=== PATIENT | female | born 1955 | race Caucasian/White ===

== ENCOUNTER 2022-10-23 06:33 | Day surgery (SDC) | payer MEDICARE, SELFPAY ==
[2022-10-18 11:04] VITALS: BMI 27.4
--- NOTE | 2022-10-20 09:58 | MHC.SHP ---
Pre-Procedural Eval Section A Date of Service: 10/20/22 The patient is an INPATIENT: No Changes since office visit: No Cold of Flu in the past 2 weeks, No New Medical Problems, No Changes in Medication and No Patient answered all questions The History & Physical has been completed within 30 days and I have reviewed it.: Yes Section B Chief Complaint: Age-related nuclear cataract, left eye Allergies: Allergies Allergy/AdvReac Type Severity Reaction Status Date / Time bee pollen [bee stings] Allergy Severe Anaphylaxis Verified 10/18/22 11:02 Plan Diagnosis/Plan: Unchanged I have reviewed the history and physical and performed a pertinent physical examination on my patient. No changes have occurred unless specified. Time Spent With Patient Time: Total time managing care of this patient today ____ minutes.
[2022-10-23 06:52] VITALS: BP 151/86; PULSE 69; RESP 18; TEMP 36.7; O2SAT 96
[2022-10-23] MEDS: Lactated Ringers 500 ML 20 ML IVCONT (06:54)
[2022-10-23] MEDS: Tetracaine HCl/PF 0.5% Oph Sol 4 ML DROPS 1 DROP EYE-LEFT (06:54)
[2022-10-23] MEDS: Phenylephrine HCL 2.5% Oph SoL 2 ML BOTTLE 1 DROP EYE-LEFT ×3 (06:55→07:05)
[2022-10-23] MEDS: Cyclopentolate 1 % Ophth Sol 2 ML DRPBTL 1 DROP EYE-LEFT ×3 (06:55→07:05)
[2022-10-23] MEDS: Tropicamide 1 % Ophth Sol 3 ML BTL 1 DROP EYE-LEFT ×3 (06:55→07:05)
[2022-10-23] MEDS: Ketorolac Tromethamine 0.5% Op 5 ML DROPS 1 DROP EYE-LEFT ×2 (07:00→07:05)
--- NOTE | 2022-10-23 07:22 | P.CONAN_ITS ---
FORMERLY [facility] Past Medical History Medical History Cataract Elevated cholesterol Hypertension Family History Family history of problems with anesthesia: No Surgical History Surgical History Hx of colonoscopy History of Problems with Anesthesia: No Social History Social History (Updated 10/18/22 @ 11:09 by Fatoumata German RN) Are you a primary wound care technician to a significant other at home: No Do you presently have visiting nurse or other home services: No Patient Tobacco Use Status: Former Tobacco user Quit Date: 2009 Use of substances other than those prescribed or required for medical reasons: No Have you been hit, kicked, punched, or otherwise hurt by someone within the past year? If so, by whom?: No Are you DNR?: No Advance Directives: No Advance Directives Information Provided: Yes Advance Directives on File: No Recently lost weight without trying: No Nutrition Risks: No Nutritional Risk Meds Allergies Allergy/AdvReac Type Severity Reaction Status Date / Time bee pollen [bee stings] Allergy Severe Anaphylaxis Verified 10/18/22 11:02 Active Medications: Current Medications Lactated Ringer's (Lr) 500 mls @ 20 mls/hr IVCONT .Q24H STUART Last Admin: 10/23/22 06:54 Dose: 20 mls/hr Povidone Iodine (Povidone Iodine 5 % Ophth Soln 30 Ml Bottle) 1 appl EYE-LEFT PREOP PRN PRN Reason: Pre-Op Surgical Implant Prophy Home Medications Medication Instructions Recorded Confirmed Last Taken Type atorvastatin 20 mg tablet 1 tab PO DAILY 10/18/22 10/18/22 Unknown History epinephrine 0.3 mg/0.3 mL 0.3 ml IM ONCE PRN Allergic 10/18/22 10/18/22 Unknown History injection, auto-injector Reaction irbesartan 75 mg tablet 1 tab PO DAILY 10/18/22 10/18/22 Unknown History Exam Exam Date and Time: October 23, 2022721 Height,Weight and Vital Signs: Height 5 ft 3 in Weight 70.307 kg Last Vital Signs Temp 98.1 F 10/23/22 06:52 Pulse 69 10/23/22 06:52 Resp 18 10/23/22 06:52 BP 151/86 H 10/23/22 06:52 Pulse Ox 96 10/23/22 06:52 O2 Del Method 10/23/22 06:52 Airway Mallampati Class: II (Upper right permanent partial, implant upper left) TM Dist: >3cm Neck ROM: Full Heart: rrr Lungs: cta Assessment and Plan Assessment Anesthesia Assessment: Anesthesia Plan Discussed and Chart Reviewed Final Anesthetic Review Family History of Problems with Anesthesia: No History of Problems with Anesthesia: No NPO: Yes ASA Class: II Final Preanesthetic Review: No Changes in Pt Med Stat, Meds/Allgs Chart Reviewed and Consent Obtained/Reviewed Patient Risk: Intermediate Procedure Risk: Intermediate Anesthetic Plan Anesthetic Plan: MAC: Disposition: Standard PACU
--- NOTE | 2022-10-23 08:26 | HO.PNOPHT ---
Ophthalmology Procedure Procedure Date of Service: 10/23/22 Ophthalmology Viscoelastic: Healcrys Jonest Dual Pack Pro Ophthalmology Lenses: TECCALI [id number] (22) Procedure Notes: PREOPERATIVE DIAGNOSIS: Decreased visual acuity left eye secondary to cataract POSTOPERATIVE DIAGNOSIS: Same PROCEDURE: Left cataract extraction with intraocular lens insertion SURGEON: Roque Thomas M.D. ANESTHESIA: Topical/MAC ESTIMATED BLOOD LOSS: None COMPLICATIONS: None After obtaining informed consent, the patient was brought to the operation room suite and placed in the supine position. After adequate sedation per anesthesia, topical drops of Tetracaine were given to the left eye. The eye was then prepped and draped in the usual sterile fashion. The operating room microscope was then positioned over the operative eye and a lid speculum placed. A paracentesis was created. Viscoelastic was then instilled into the anterior chamber. A three plane incision was then created temporally, utilizing a 2.85 mm keratome. Capsulotomy forceps were then utilized to create a circular tear capsulotomy. Hydrodissection and hydrodelineation were carried out until adequate mobilization of the nucleus occurred. Phacoemulsification was then utilized to remove the dense central nucleus followed by removal of the cortical material utilizing the automated aspiration irrigation unit. Viscoat elastic was instilled into the posterior capsular bag followed by placement of a posterior chamber intraocular lens without difficulty. The residual Viscoat elastic was then removed utilizing the automated IA machine. The wound was check and found to be watertight. The patient tolerated the procedure well and the lid speculum was removed. Intracameral injection of Vigamox 0.1 mL followed by a subtenon injection of Kenalog-40 0.2 mL were administered. The patient will be seen in the a.m.
[2022-10-23 08:50] VITALS: BP 167/92; PULSE 65; RESP 16; TEMP 36.2; O2SAT 95
== END 2022-10-23 09:00 | disposition home or self-care (01) ==
PROVIDERS: PCP Nurse Practitioner Family; Visit Provider Ophthalmology
PROC: (CPT 66985; principal; 2022-10-23 08:20)
DX: H25.12 Age-related nuclear cataract, left eye (principal); H54.7 Unspecified visual loss; I10 Essential (primary) hypertension; E78.00 Pure hypercholesterolemia, unspecified; Z87.891 Personal history of nicotine dependence; Z79.899 Other long term (current) drug therapy
CPT/HCPCS: 66984; J2250; J3301; V2632

== ENCOUNTER 2022-11-13 07:30 | Day surgery (SDC) | payer MEDICARE, SELFPAY ==
[2022-10-18 11:20] VITALS: BMI 27.4
--- NOTE | 2022-11-08 09:26 | MHC.SHP ---
Pre-Procedural Eval Section A Date of Service: 11/08/22 The patient is an INPATIENT: No Changes since office visit: No Cold of Flu in the past 2 weeks, No New Medical Problems, No Changes in Medication and No Patient answered all questions The History & Physical has been completed within 30 days and I have reviewed it.: Yes Section B Chief Complaint: Age-related nuclear cataract, right eye Allergies: Allergies Allergy/AdvReac Type Severity Reaction Status Date / Time bee pollen [bee stings] Allergy Severe Anaphylaxis Verified 10/18/22 11:02 Plan Diagnosis/Plan: Unchanged I have reviewed the history and physical and performed a pertinent physical examination on my patient. No changes have occurred unless specified. Time Spent With Patient Time: Total time managing care of this patient today ____ minutes.
--- NOTE | 2022-11-13 07:47 | HO.ANESPROP2 ---
FORMERLY [facility] Past Medical History Medical History Elevated cholesterol Hypertension Family History Family history of problems with anesthesia: No Surgical History Surgical History Cataract extraction status of left eye Hx of colonoscopy History of Problems with Anesthesia: No Social History Social History Are you a primary home care chaplain to a significant other at home: No Do you presently have visiting nurse or other home services: No Patient Tobacco Use Status: Former Tobacco user Quit Date: 2009 Use of substances other than those prescribed or required for medical reasons: No Have you been hit, kicked, punched, or otherwise hurt by someone within the past year? If so, by whom?: No Are you DNR?: No Advance Directives: No Advance Directives Information Provided: Yes Advance Directives on File: No Recently lost weight without trying: No Nutrition Risks: No Nutritional Risk Poor oral hygiene: No Meds Allergies Allergy/AdvReac Type Severity Reaction Status Date / Time bee pollen [bee stings] Allergy Severe Anaphylaxis Verified 11/13/22 07:41 Active Medications: Current Medications Cyclopentolate HCl (Cyclopentolate 1 % Ophth Vanna 2 Ml Drpbtl) 1 drop EYE-RIGHT Q5M STUART Stop: 11/13/22 07:56 Ketorolac Tromethamine (Ketorolac Tromethamine 0.5% Op 5 Ml Drops) 1 drop EYE-RIGHT Q5M STUART Stop: 11/13/22 07:56 Phenylephrine HCl (Phenylephrine Hcl 2.5% Oph Vanna 2 Ml Bottle) 1 drop EYE-RIGHT Q5M STUART Stop: 11/13/22 07:56 Povidone Iodine (Povidone Iodine 5 % Ophth Soln 30 Ml Bottle) 1 appl EYE-RIGHT PREOP PRN PRN Reason: Pre-Op Surgical Implant Prophy Tropicamide (Tropicamide 1 % Ophth Vanna 3 Ml Btl) 1 drop EYE-RIGHT Q5M STUART Stop: 11/13/22 07:56 Home Medications Medication Instructions Recorded Confirmed Last Taken Type atorvastatin 20 mg tablet 1 tab PO DAILY 10/18/22 10/18/22 Unknown History epinephrine 0.3 mg/0.3 mL 0.3 ml IM ONCE PRN Allergic 10/18/22 10/18/22 Unknown History injection, auto-injector Reaction irbesartan 75 mg tablet 1 tab PO DAILY 10/18/22 11/13/22 11/12/22 History clonazepam 0.5 mg tablet 1 tab PO BEDTIME PRN anxiety 11/13/22 11/13/22 11/13/22 07:00 History Exam Exam Date and Time: November 13, 2022 0747 Height,Weight and Vital Signs: Height 5 ft 3 in Weight 70.307 kg Airway Mallampati Class: II TM Dist: >3cm Neck ROM: Full Loose/Missing/Broken Teeth: No Heart: RRR Lungs: CTA Assessment and Plan Assessment Anesthesia Assessment: Anesthesia Plan Discussed and Chart Reviewed Final Anesthetic Review Family History of Problems with Anesthesia: No History of Problems with Anesthesia: No NPO: Yes ASA Class: II Final Preanesthetic Review: Meds/Allgs Chart Reviewed, Consent Obtained/Reviewed and Anes Risks/Benef Reviewed Patient Risk: Low Procedure Risk: Low Anesthetic Plan Anesthetic Plan: MAC: Disposition: Standard PACU
[2022-11-13] MEDS: Tetracaine HCl/PF 0.5% Oph Sol 4 ML DROPS 1 DROP EYE-RIGHT (07:51)
[2022-11-13 07:52] VITALS: BP 165/89; PULSE 69; RESP 16; TEMP 36.3; O2SAT 96
[2022-11-13] MEDS: Cyclopentolate 1 % Ophth Sol 2 ML DRPBTL 1 DROP EYE-RIGHT ×3 (07:52→08:08)
[2022-11-13] MEDS: Tropicamide 1 % Ophth Sol 3 ML BTL 1 DROP EYE-RIGHT ×3 (07:54→08:10)
[2022-11-13] MEDS: Ketorolac Tromethamine 0.5% Op 5 ML DROPS 1 DROP EYE-RIGHT ×3 (07:56→08:12)
[2022-11-13] MEDS: Phenylephrine HCL 2.5% Oph SoL 2 ML BOTTLE 1 DROP EYE-RIGHT ×3 (07:58→08:14)
--- NOTE | 2022-11-13 09:05 | HO.PNOPHT ---
Ophthalmology Procedure Procedure Date of Service: 11/13/22 Ophthalmology Viscoelastic: Traci Jonest Dual Pack Pro Ophthalmology Lenses: TECCALI [id number] (22) Procedure Notes: PREOPERATIVE DIAGNOSIS: Decreased visual acuity right eye secondary to cataract POSTOPERATIVE DIAGNOSIS: Same PROCEDURE: Right cataract extraction with intraocular lens insertion SURGEON: Roque Thomas M.D. ANESTHESIA: Topical/MAC ESTIMATED BLOOD LOSS: None COMPLICATIONS: None After obtaining informed consent, the patient was brought to the operating room suite and placed in the supine position. After adequate sedation per anesthesia, topical drops of Tetracaine were given to the right eye. The eye was then prepped and draped in the usual sterile fashion. The operating room microscope was then positioned over the operative eye and a lid speculum placed. A paracentesis was created. Viscoelastic was then instilled into the anterior chamber. A three plane incision was then created temporally, utilizing a 2.85 mm keratome. Capsulotomy forceps were then utilized to create a circular tear capsulotomy. Hydrodissection and hydrodelineation were carried out until adequate mobilization of the nucleus occurred. Phacoemulsification was then utilized to remove the dense central nucleus followed by removal of the cortical material utilizing the automated aspiration irrigation unit. Viscoelastic was instilled into the posterior capsular bag followed by placement of a posterior chamber intraocular lens without difficulty. The residual Viscoelastic was then removed utilizing the automated IA machine. The wound was checked and found to be watertight. The patient tolerated the procedure well and the lid speculum was removed. Intracameral injection of Vigamox 0.1 mL followed by a subtenon injection of Kenalog-40 0.2 mL were administered. The patient will be seen in the a.m.
[2022-11-13 09:28] VITALS: BP 175/87; PULSE 65; RESP 18; TEMP 36.5; O2SAT 99
== END 2022-11-13 09:43 | disposition home or self-care (01) ==
PROVIDERS: PCP Nurse Practitioner Family; Visit Provider Ophthalmology
PROC: (CPT 66985; principal; 2022-11-13 09:30)
DX: H25.11 Age-related nuclear cataract, right eye (principal); H54.7 Unspecified visual loss; H40.003 Preglaucoma, unspecified, bilateral; I10 Essential (primary) hypertension; E78.00 Pure hypercholesterolemia, unspecified; Z79.899 Other long term (current) drug therapy; Z87.891 Personal history of nicotine dependence
CPT/HCPCS: 66984; J2250; J3301; V2632

== ENCOUNTER 2022-11-15 14:17 | Emergency (ER) | payer MEDICARE, SELFPAY ==
--- NOTE | ~2022-11-15 | CT_ITS ---
EXAMINATION: CT ABDOMEN AND PELVIS WITHOUT CONTRAST CLINICAL INFORMATION: Right flank pain. COMPARISON: Abdominal ultrasound dated 04/30/2013. TECHNIQUE: Multidetector volumetric imaging was performed from the superior aspect of the liver through the pubic symphysis. Sagittal and coronal reformatted images were obtained on the technologist's workstation. Lack of intravenous and oral contrast limits visceral evaluation. This CT examination was performed using dose optimization techniques as appropriate, variously including the following: *Automated exposure control *Adjustment of mA and/or kV according to patient size (this includes techniques or standardized protocols for targeted exams where dose is matched to indication/reason for exam; i.e. extremities or head) *Use of iterative reconstruction technique DLP: 534 mGy-cm FINDINGS: LUNG BASES: Minimal bibasilar linear atelectasis/scarring. LIVER, GALLBLADDER, AND BILIARY TREE: Unremarkable. PANCREAS: Unremarkable. SPLEEN: Unremarkable. ADRENAL GLANDS: Unremarkable. KIDNEYS AND URETERS: The kidneys are normal in size, shape, and attenuation. No hydronephrosis, hydroureter, or calculi seen. No perinephric stranding. BLADDER: Unremarkable. GASTROINTESTINAL TRACT: The stomach, small bowel and appendix are unremarkable. The colon is unremarkable. Mild to moderate stool seen within the rectum without surrounding abnormality. ABDOMINAL WALL: No significant hernia is appreciated. LYMPH NODES: No lymphadenopathy. VASCULAR: Moderate atherosclerosis without significant dilatation. PELVIC VISCERA: Small left ovarian dermoid with associated coarse calcification and neck component collectively measuring 3.0 x 1.6 x 1.6 cm (image 42, series 6; image 64, series 3). OSSEOUS STRUCTURES: Mild multilevel degenerative changes. No suspicious abnormality. CT/CT abdomen pelvis wo IV con IMPRESSION: 1. No acute intra-abdominal/pelvic abnormality to explain the patient's pain. No nephrolithiasis or hydroureteronephrosis. 2. Small left ovarian dermoid.
[2022-11-15 15:45] VITALS: BP 205/90; PULSE 70; RESP 19; TEMP 36.6; O2SAT 98; BMI 27.4
--- NOTE | 2022-11-15 15:46 | ED_ITS ---
HPI - Back Pain/Injury General Chief Complaint: Back Pain/Injury <Mary Mazariegos CNP - Last Filed: 11/15/22 15:52> Stated Complaint: severe back pain <Mary Mazariegos CNP - Last Filed: 11/15/22 15:52> Time Seen by Provider: 11/15/22 17:58 <Mary Mazariegos CNP - Last Filed: 11/15/22 15:52> History of Present Illness HPI Narrative: Patient complains of severe right-sided low back flank and gluteal pain which began gradually last night, and has remained severe with movement but not as bad when she rests in a comfortable position, pain is movement related There is no dysuria no frequency there is no incontinence no changes to bowel or bladder there is no numbness weakness or tingling, pain does radiate from the back towards the right groin area There is no fever no IV drug use, it is painful to walk but she is able to walk No chest pain no abdominal pain no nausea no vomiting no diarrhea <JUAN Fall - Last Filed: 11/15/22 19:02> Related Data Home Medications: Home Medications Medication Instructions Recorded Confirmed atorvastatin 20 mg tablet 1 tab PO DAILY 10/18/22 10/18/22 epinephrine 0.3 mg/0.3 mL 0.3 ml IM ONCE PRN Allergic 10/18/22 10/18/22 injection, auto-injector Reaction irbesartan 75 mg tablet 1 tab PO DAILY 10/18/22 11/13/22 clonazepam 0.5 mg tablet 1 tab PO BEDTIME PRN anxiety 11/13/22 11/13/22 Previous Rx's Medication Instructions Recorded acetaminophen 500 mg capsule 1,000 mg PO Q8H PRN pain #30 caps 11/15/22 cyclobenzaprine 5 mg tablet 5 mg PO TID PRN muscle spasm #14 11/15/22 tabs naproxen 500 mg tablet (Naprosyn) 500 mg PO BID PRN pain #14 tabs 11/15/22 oxycodone 5 mg tablet 5 mg PO Q6H PRN pain #20 tabs 11/15/22 <Mary Mazariegos CNP - Last Filed: 11/15/22 15:52> Allergies/Adverse Reactions: Allergies Allergy/AdvReac Type Severity Reaction Status Date / Time bee pollen [bee stings] Allergy Severe Anaphylaxis Verified 11/13/22 07:41 <Mary Mazariegos CNP - Last Filed: 11/15/22 15:52> [facility] Past Medical History Attestation statement: The following information was validated with the patient. <JUAN Fall - Last Filed: 11/15/22 19:02> [facility] Narrative: Patient does have history of high blood pressure and is compliant with her medication <JUAN Fall - Last Filed: 11/15/22 19:02> Medical History: Medical History Elevated cholesterol Hypertension <Mary Mazariegos CNP - Last Filed: 11/15/22 15:52> Surgical History: Surgical History Cataract extraction status of left eye Hx of colonoscopy <Mary Mazariegos CNP - Last Filed: 11/15/22 15:52> Social History Social History: Social History Are you a primary director of critical care to a significant other at home: No Do you presently have visiting nurse or other home services: No Patient Tobacco Use Status: Former Tobacco user Quit Date: 2009 Advance Directives: Yes Advance Directives Information Provided: No Advance Directives on File: No <Mary Mazariegos CNP - Last Filed: 11/15/22 15:52> Physical Exam Vital Signs: Vital Signs: Last Vital Signs Temp 98 F 11/15/22 15:45 Pulse 70 11/15/22 15:45 Resp 11/15/22 15:45 BP 205/90 H 11/15/22 15:45 Pulse Ox 98 11/15/22 15:45 O2 Del Method 11/15/22 15:45 BMI result Body Mass Index 27.4 <Mary Mazariegos CNP - Last Filed: 11/15/22 15:52> Vital Signs: Last Vital Signs Temp 98 F 11/15/22 15:45 Pulse 70 11/15/22 15:45 Resp 11/15/22 15:45 BP 205/90 H 11/15/22 15:45 Pulse Ox 98 11/15/22 15:45 O2 Del Method 11/15/22 15:45 BMI result Body Mass Index 27.4 <JUAN Fall - Last Filed: 11/15/22 19:02> Patient is comfortable appearing in no acute distress when she is laying in bed in comfortable position but when asked to sit up she complained of lots of pain in the right lower back The head is normocephalic atraumatic Neck is supple nontender The chest is clear to auscultation bilateral chest wall nontender Heart no murmur Abdomen soft nontender no rebound no guarding The back exam there is no CVA tenderness, there is right lower lumbar/upper gluteal tenderness, there is no other tenderness in the back, skin of the back was normal there is no focal bony tenderness Pain in that area was easily reproduced by having the patient sit up and change position Extremities full range of motion x4 Neuro gait and balance are normal, interaction both comprehension and expression are normal, motor is 5/5 x4, patient can walk on toes and walk on heels, she can squat, sensation in toes is intact and symmetrical <JUAN Fall - Last Filed: 11/15/22 19:02> Course Course Course Narrative: This is an RME: Additional HPI, ROS, PE not included below will be deferred to primary provider. Patient is a 67-year-old female who presents emergency department for evaluation of severe right lower back pain. Onset of pain was last night, without any precipitating injury. She was sitting on the couch and became suddenly. Increased severity throughout the night. It is described as a spasming/sharp pain, at times seems to be made worse with particu lar movements, she is having a difficult time she sitting still. This is also causing nausea. Denies fevers, chills, hematuria, dysuria, urinary frequency/hesitancy/urgency. Has tried ibuprofen in addition to heating pad without any improvement. She reports a remote history of somewhat similar pain approximately 10 years ago but was much severe than the current experience. PE: Right CVA tenderness Plan: Labs, urinalysis, CT abdomen and pelvis <Mary Mazariegos CNP - Last Filed: 11/15/22 15:52> This is an RME: Additional HPI, ROS, PE not included below will be deferred to primary provider. Patient is a 67-year-old female who presents emergency department for evaluation of severe right lower back pain. Onset of pain was last night, without any precipitating injury. She was sitting on the couch and became suddenly. Increased severity throughout the night. It is described as a spasming/sharp pain, at times seems to be made worse with particular movements, she is having a difficult time she sitting still. This is also causing nausea. Denies fevers, chills, hematuria, dysuria, urinary frequency/hesitancy/urgency. Has tried ibuprofen in addition to heating pad without any improvement. She reports a remote history of somewhat similar pain approximately 10 years ago but was much severe than the current experience. PE: Right CVA tenderness Plan: Labs, urinalysis, CT abdomen and pelvis Noncontrast CT of abdomen and pelvis had no acute findings, no nephrolithiasis no hydronephrosis, no perinephric stranding, vascular did not show any evidence of aneurysm or dilated aorta, the spine show degenerative changes but no obvious malignancy Incidental finding was a small left dermoid No acute findings on chemistry or CBC Urine did show positive for nitrite and trace leukocyte esterase with 4+ bact eria, but given that the patient has no urinary tract symptoms, her back pain is not in the kidney area, no dysuria no frequency, urination is normal this is likely asymptomatic bacteriuria and is not treated as infection now Patient was treated with analgesics for likely musculoskeletal back pain At 19:00 pain is improved but not controlled well enough and blood pressure is still 205/90 Case discussed with and plan is give more analgesic and if patient is comfortable enough to go home she will be discharged after repeat blood pressure check There is no concern for hypertensive emergency patient has no chest pain no shortness of breath no difficulty breathing no neurologic deficit no stroke systems, no acute renal failure At 19:00 case is signed out to physician pediatric dental assistant Maverick munoz to re-evaluate and dispo patient <JUAN Fall - Last Filed: 11/15/22 19:02> Medications Administered Discontinued Medications Generic Name Dose Route Start Last Admin Trade Name Freq PRN Reason Stop Dose Admin Acetaminophen 975 mg 11/15/22 18:22 11/15/22 18:29 Acetaminophen 325 Mg Tablet PO 11/15/22 18:23 975 mg ONCE ONE Administration Ketorolac Tromethamine 30 mg 11/15/22 18:10 11/15/22 18:29 Ketorolac Tromethamine 30 Mg/Ml Vial IM 11/15/22 18:11 30 mg ONCE ONE Administration Oxycodone HCl 10 mg 11/15/22 18:10 11/15/22 18:29 Oxycodone Hcl Immed Release 5 Mg Tablet PO 11/15/22 18:11 10 mg ONCE ONE Administration <Mary Mazariegos CNP - Last Filed: 11/15/22 15:52> Medications Administered Discontinued Medications Generic Name Dose Route Start Last Admin Trade Name Luther PRN Reason Stop Dose Admin Acetaminophen 975 mg 11/15/22 18:22 11/15/22 18:29 Acetaminophen 325 Mg Tablet PO 11/15/22 18: 975 mg ONCE ONE Administration Ketorolac Tromethamine 30 mg 11/15/22 18:10 11/15/22 18:29 Ketorolac Tromethamine 30 Mg/Ml Vial IM 11/15/22 18:11 30 mg ONCE ONE Administration Oxycodone HCl 10 mg 11/15/22 18:10 11/15/22 18:29 Oxycodone Hcl Immed Release 5 Mg Tablet PO 11/15/22 18:11 10 mg ONCE ONE Administration <JUAN Fall - Last Filed: 11/15/22 19:02> Medical Decision Making Lab Data Result Diagrams: 11/15/22 16:41 11/15/22 16:41 <Mary Mazariegos CNP - Last Filed: 11/15/22 15:52> Labs: Lab Results 11/15/22 11/15/22 11/15/22 Range/Units 16:41 16:41 16:43 WBC 5.8 (4.8-10.8) X10*3/uL RBC 4.33 (4.20-5.50) X10*6/uL Hgb 13.9 (12.0-16.0) g/dl Hct 41.9 (37.0-47.0) % MCV 96.8 (80.0-98.0) fL MCH 32.1 (27.0-33.0) pg MCHC 33.2 (31.0-35.0) g/dl RDW 12.0 (11.0-16.0) % Plt Count 187 (160-400) X10*3/uL MPV 10.7 (9.4-12.3) fL Immature Gran % (Auto) 0.7 H (0.0-0.4) % Neut % (Auto) 67.4 (45-73) % Lymph % (Auto) 24.2 (20-40) % M[place]at % (Auto) 6.7 (2-11) % Eos % (Auto) 0.3 (0-4) % Baso % (Auto) 0.7 (0-2) % Lymph # (Auto) 1.4 (1.2-4.9) X10*3/uL M[place]at # (Auto) 0.4 (0.1-1.2) X10*3/uL Eos # (Auto) 0.0 (0.0-0.4) X10*3/uL Baso # (Auto) 0.0 (0.0-0.2) X10*3/uL Abs Immat Gran (auto) 0.04 H (0.00-0.03) X10*3/uL Absolute Neuts (auto) 3.9 (2.0-8.3) x10*3/uL Absolute Nucleated RBC 0.000 (0.0-0.012) X10*3/uL Nucleated RBC % (auto) 0.0 (0.0-0.2) /100WBC Sodium 143 (135-145) mmol/L Potassium 4.4 (3.3-5.1) mmol/L Chloride 109 H (96-108) mmol/L Carbon Dioxide 23 (22-29) mmol/L Anion Gap 15 (12-20) BUN 12 (9-16) mg/dL Creatinine 0.80 (0.5-1.4) mg/dL Estim Creat Clear Calc 65.0 Estimated GFR > 60 Random Glucose 99 (60-115) mg/dL Calcium 9.2 (8.4-10.2) mg/dL Total Bilirubin 0.7 (0.0-1.0) mg/dL AST 21 (5-31) U/L ALT 27 (0-31) U/L Alkaline Phosphatase 55 (39-117) U/L Total Protein 6.7 (6.5-8.0) g/dL Albumin 4.3 (3.5-5.0) g/dL Lipase 39 (8-78) U/L Urine Color Yellow Urine Appearance Clear Urine pH 6.0 (5.0-9.0) Ur Specific [place] 1.010 (1.005-1.025) Urine Protein Negative (Neg-Trace) mg/dL Urine Glucose (UA) Negative (Negative) mg/dL Urine Ketones Negative (Negative) mg/dL Urine Blood Negative (Negative) Urine Nitrite Positive H (Negative) Ur Leukocyte Esterase Trace H (Negative) Urine RBC 0-2 (0-2) /HPF Urine WBC 0-5 (0-5) /HPF Ur Squamous Epith Cells 0-2 (0-2) /HPF Urine Bacteria 4+ (None Seen) Hyaline Casts 0-2 (0-2) /LPF <Mary Mazariegos CNP - Last Filed: 11/15/22 15:52> Lab Results 11/15/22 11/15/22 11/15/22 Range/Units 16:41 16:41 16:43 WBC 5.8 (4.8-10.8) X10*3/uL RBC 4.33 (4.20-5.50) X10*6/uL Hgb 13.9 (12.0-16.0) g/dl Hct 41.9 (37.0-47.0) % MCV 96.8 (80.0-98.0) fL MCH 32.1 (27.0-33.0) pg MCHC 33.2 (31.0-35.0) g/dl RDW 12.0 (11.0-16.0) % Plt Count 187 (160-400) X10*3/uL MPV 10.7 (9.4-12.3) fL Immature Gran % (Auto) 0.7 H (0.0-0.4) % Neut % (Auto) 67.4 (45-73) % Lymph % (Auto) 24.2 (20-40) % Moffat % (Auto) 6.7 (2-11) % Eos % (Auto) 0.3 (0-4) % Baso % (Auto) 0.7 (0-2) % Lymph # (Auto) 1.4 (1.2-4.9) X10*3/uL Moffat # (Auto) 0.4 (0.1-1.2) X10*3/uL Eos # (Auto) 0.0 (0.0-0.4) X10*3/uL Baso # (Auto) 0.0 (0.0-0.2) X10*3/uL Abs Immat Gran (auto) 0.04 H (0.00-0.03) X10*3/uL Absolute Neuts (auto) 3.9 (2.0-8.3) x10*3/uL Absolute Nucleated RBC 0.000 (0.0-0.012) X10*3/uL Nucleated RBC % (auto) 0.0 (0.0-0.2) /100WBC Sodium 143 (135-145) mmol/L Potassium 4.4 (3.3-5.1) mmol/L Chloride 109 H (96-108) mmol/L Carbon Dioxide 23 (22-29) mmol/L Anion Gap 15 (12-20) BUN 12 (9-16) mg/dL Creatinine 0.80 (0.5-1.4) mg/dL Estim Creat Clear Calc 65.0 Estimated GFR > 60 Random Glucose 99 (60-115) mg/dL Calcium 9.2 (8.4-10.2) mg/dL Total Bilirubin 0.7 (0.0-1.0) mg/dL AST 21 (5-31) U/L ALT 27 (0-31) U/L Alkaline Phosphatase 55 (39-117) U/L Total Protein 6.7 (6.5-8.0) g/dL Albumin 4.3 (3.5-5.0) g/dL Lipase 39 (8-78) U/L Urine Color Yellow Urine Appearance Clear Urine pH 6.0 (5.0-9.0) Ur Specific [place] 1.010 (1.005-1.025) Urine Protein Negative (Neg-Trace) mg/dL Urine Glucose (UA) Negative (Negative) mg/dL Urine Ketones Negative (Negative) mg/dL Urine Blood Negative (Negative) Urine Nitrite Positive H (Negative) Ur Leukocyte Esterase Trace H (Negative) Urine RBC 0-2 (0-2) /HPF Urine WBC 0-5 (0-5) /HPF Ur Squamous Epith Cells 0-2 (0-2) /HPF Urine Bacteria 4+ (None Seen) Hyaline Casts 0-2 (0-2) /LPF <JUAN Fall - Last Filed: 11/15/22 19:02> Discharge Plan Discharge Clinical Impression: Back pain <Mary Mazariegos CNP - Last Filed: 11/15/22 15:52> Patient Disposition: Home, Self-Care <Mary Mazariegos CNP - Last Filed: 11/15/22 15:52> Additional Instructions: The pain in your back is likely musculoskeletal CT scan did not find any kidney stones no enlarged aorta no evidence of any mass no evidence of a compression fracture, no emergent or worrisome findings We are writing for muscle relaxer and pain medicine as needed Most musculoskeletal back pain gets better on its own in a reasonable amount of time, if not better next week follow with primary doctor Return any time for weakness fever changes to bowel or bladder any worse condition or any concerns <Mary Mazariegos CNP - Last Filed: 11/15/22 15:52> Prescriptions: New oxycodone 5 mg tablet 5 mg PO Q6H PRN (Reason: pain) Qty: 20 0RF Rx Instructions: Partial Fill upon patient request. naproxen [Naprosyn] 500 mg tablet 500 mg PO BID PRN (Reason: pain) Qty: 14 0RF acetaminophen 500 mg capsule 1,000 mg PO Q8H PRN (Reason: pain) Qty: 30 0RF cyclobenzaprine 5 mg tablet 5 mg PO TID PRN (Reason: muscle spasm) Qty: 14 0RF Rx Instructions: Medication may cause drowsiness so no driving for 8 hours after taking No Action clonazepam 0.5 mg tablet 1 tab PO BEDTIME PRN (Reason: anxiety) atorvastatin 20 mg tablet 1 tab PO DAILY irbesartan 75 mg tablet 1 tab PO DAILY epinephrine 0.3 mg/0.3 mL auto-injector 0.3 ml IM ONCE PRN (Reason: Allergic Reaction) <Mary Mazariegos CNP - Last Filed: 11/15/22 15:52>
[2022-11-15 16:47] LABS: MANUAL DIFF FLAG NO
[2022-11-15 16:49] LABS: Basophils Percent Auto 0.7 % (0-2); Eosinophils Percent Auto 0.3 % (0-4); Hematocrit 41.9 % (37.0-47.0); Hemoglobin 13.9 g/dl (12.0-16.0); Imm Gran Abs Auto 0.04 X10*3/uL (0.00-0.03); Imm Gran Pct Auto 0.7 % (0.0-0.4); Lymphocytes Absolute Auto 1.4 X10*3/uL (1.2-4.9); Lymphocytes Percent Auto 24.2 % (20-40); Mean Corpuscular HGB Conc 33.2 g/dl (31.0-35.0); Mean Corpuscular Hemoglobin 32.1 pg (27.0-33.0); Mean Corpuscular Volume 96.8 fL (80.0-98.0); Mean Platelet Volume 10.7 fL (9.4-12.3); Monocytes Absolute Auto 0.4 X10*3/uL (0.1-1.2); Monocytes Percent Auto 6.7 % (2-11); Neutrophils Absolute Auto 3.9 x10*3/uL (2.0-8.3); Neutrophils Percent Auto 67.4 % (45-73); Platelet Count 187 X10*3/uL (160-400); Red Blood Count 4.33 X10*6/uL (4.20-5.50); White Blood Count 5.8 X10*3/uL (4.8-10.8)
[2022-11-15 16:50] LABS: Appearance Urine Clear; Color Urine Yellow; Glucose Urine UA Negative (Negative); Leukocyte Esterase Urine Trace (Negative); Nitrite Urine Positive (Negative); UMIC TRIGGER UACC YES; Urine Blood Negative (Negative); Urine Ketones Negative (Negative); Urine Protein Negative (Neg-Trace)
[2022-11-15 16:55] LABS: Bacteria Urine 4+ (None Seen); Hyaline Casts Urine 0-2 /LPF (0-2); RBC Urine 0-2 /HPF (0-2); Squamous Epithelial Cell Urine 0-2 /HPF (0-2); UACC Culture Trigger YES; WBC Urine 0-5 /HPF (0-5)
[2022-11-15 17:02] LABS: Alanine Aminotransferase 27 U/L (0-31); Albumin Level 4.3 g/dL (3.5-5.0); Alkaline Phosphatase 55 U/L (39-117); Anion Gap 15 (12-20); Aspartate Amino Transferase 21 U/L (5-31); Bilirubin Total 0.7 mg/dL (0.0-1.0); Blood Urea Nitrogen 12 mg/dL (9-16); Calcium 9.2 mg/dL (8.4-10.2); Carbon Dioxide 23 mmol/L (22-29); Chloride 109 mmol/L (96-108); Estimated Glomerular Filt Rate > 60; Glucose Random 99 mg/dL (60-115); Lipase 39 U/L (8-78); Potassium 4.4 mmol/L (3.3-5.1); Sodium 143 mmol/L (135-145); Total Protein 6.7 g/dL (6.5-8.0)
[2022-11-15] MEDS: Acetaminophen 325 MG TABLET 975 MG PO (18:29)
[2022-11-15] MEDS: oxyCODONE HCl Immed Release 5 MG TABLET 10 MG PO (18:29)
[2022-11-15] MEDS: Ketorolac Tromethamine 30 MG/ML VIAL IM (18:29)
--- NOTE | 2022-11-15 18:34 | PC.NURSE ---
pt medicated per provider order.
[2022-11-15] MEDS: HYDROmorphone HCl 0.5 MG/0.5 ML SYRINGE IM (19:10)
[2022-11-15 19:57] VITALS: BP 177/88
== END 2022-11-15 20:26 | disposition home or self-care (01) ==
PROVIDERS: Nurse Practitioner Family; Emergency Provider Emergency Medicine; PCP Nurse Practitioner Family
DX: M54.50 Low back pain, unspecified (principal); I10 Essential (primary) hypertension; E78.5 Hyperlipidemia, unspecified; Z79.02 Long term (current) use of antithrombotics/antiplatelets; Z79.899 Other long term (current) drug therapy; Z87.891 Personal history of nicotine dependence
CPT/HCPCS: 36415; 74176; 80053; 81001; 83690; 85025; 87086; 87088; 87186; 96372; 99284; J1170; J1885